=== PATIENT | male | born 1965 | race African-American/Black ===

== ENCOUNTER 2018-04-09 09:38 | Emergency (ER) | payer OTHER ==
[2018-04-09] MEDS ORDERED: HYDROmorphONE/DILAUDID 2 MG/ML INJ IVP ONE (10:17)
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
[2018-04-09] MEDS ORDERED: ONDANSETRON 4 MG/2 ML VIAL IVP ONE (12:23)
[2018-04-09] MEDS ORDERED: KETOROLAC 30 MG/1 ML SDV IVP ONE (12:45)
[2018-04-09] MEDS ORDERED: HYDROCODONE/APAP 5/325 TAB PO ONE (12:45)
[2018-04-09 13:31] VITALS: BP 129/78
== END 2018-04-09 13:33 | disposition home or self-care (01) ==
DX: M54.6 Pain in thoracic spine (principal); M54.2 Cervicalgia; M25.511 Pain in right shoulder; M79.641 Pain in right hand; R07.89 Other chest pain; V49.10XA Passenger injured in collision with unspecified motor vehicles in nontraffic accident, initial encounter; Y92.9 Unspecified place or not applicable; Y93.9 Activity, unspecified; Y99.9 Unspecified external cause status
CPT/HCPCS: 96374; J1170; J1885; J2405